=== PATIENT | female | born 1950 | race Caucasian/White ===

== ENCOUNTER → 2019-10-30 10:22 | Outpatient (CLI) | payer MEDICARE, SELFPAY ==
--- NOTE | 2019-10-30 10:36 | DI.CT.S_ITS ---
PROCEDURE: CT UE RT WO CON INDICATIONS: Primary osteoarthritis, right shoulder TECHNIQUE: Noncontrast 1-1.5 mm thick sections acquired from the acromioclavicular joint to the inferior scapula, with coronal and sagittal reformatting. COMPARISON: [facility] Outside Film, RG, SHOULDER MIN 2VW (RT), 12/19/2018, 16:46. FINDINGS: Image quality: Excellent. Bones: Severe degenerative osteoarthrosis is seen in the glenohumeral joint with full-thickness joint space narrowing, marginal osteophyte formation, subchondral cystic changes, and remodeling of the articular surfaces. There is mild posterior subluxation of the humeral head relative to the glenoid fossa. There is mild 5 degree retroversion of the glenoid relative to the midplane of the scapula when measured at the mid glenoid level. There is mild acromioclavicular joint osteoarthrosis. No acute fracture is seen. Soft tissues: Small glenohumeral joint effusion. A pacemaker is noted with battery pack in the right chest. There is mild dependent atelectasis in the lungs posteriorly a non-specific 3 mm nodule in the posterior aspect of the left upper lobe is nonspecific and most likely benign given its size. There is no significant atrophy of the rotator cuff musculature. The soft tissue structures including the tendons, ligaments, and articular cartilages are not well evaluated with CT. IMPRESSION: 1. Severe glenohumeral osteoarthrosis with full-thickness joint space narrowing and marginal osteophyte formation. There is mild glenoid retroversion measuring 5 mm relative to the midplane of the scapula at the mid glenoid level. There is mild posterior subluxation of the humeral head relative to the glenoid. No significant rotator cuff muscle atrophy. 2. Mild acromioclavicular joint osteoarthrosis. Dictated by: Cristóbal Martin M.D. on 10/30/2019 at 10:56 Approved by: Cristóbal Martin M.D. on 10/30/2019 at 11:07
== END ==
PROVIDERS: PCP Nurse Practitioner Family; Referring Provider Nurse Practitioner Family; Visit Provider Orthopaedic Surgery
DX: M19.011 Primary osteoarthritis, right shoulder (principal); Z95.0 Presence of cardiac pacemaker
CPT/HCPCS: 73200

== ENCOUNTER → 2020-02-07 15:12 | Outpatient (CLI) | payer MEDICARE, SELFPAY ==
[2020-02-07 16:58] LABS: COVID19 -Nasal RAPID Negative (Negative)
== END ==
PROVIDERS: PCP Nurse Practitioner Family; Visit Provider Physician Assistant
DX: Z11.59 Encounter for screening for other viral diseases (principal)
CPT/HCPCS: 87635

== ENCOUNTER 2020-02-09 07:15 | Inpatient (IN) | payer MEDICARE, SELFPAY ==
[2020-01-26 13:01] VITALS: BMI 19.5
[2020-02-09] VITALS (15 sets, daily range): BP systolic 87–121; BP diastolic 9–72; PULSE 60–99; RESP 11–23; TEMP 36.1–37.3; O2SAT 94–100; BMI 19.5
--- NOTE | 2020-02-09 06:00 | DI.RAD.S_ITS ---
PROCEDURE: XR SHOULDER RT 1V INDICATIONS: post op films TECHNIQUE: 1 view of the shoulder was acquired. COMPARISON: [facility], CT, CT UE RT WO CON, 10/30/2019, 10:29. FINDINGS: Bones: On this postoperative study, right shoulder arthroplasty hardware is seen. Soft tissues: Soft tissue postoperative changes are seen. The visualized lung demonstrates an unremarkable appearance. A pacer power pack can be seen. IMPRESSION: Normal postoperative examination. Dictated by: Jamir Barrett M.D. on 02/09/2020 at 10:32 Approved by: Jamir Barrett M.D. on 02/09/2020 at 10:34
[2020-02-09] MEDS: ACETAMINOPHEN 325 MG TABLET 975 MG PO ×3 (07:00→21:58)
[2020-02-09] MEDS: PREGABALIN 75 MG CAPSULE PO (07:01)
[2020-02-09] MEDS: CELECOXIB 200 MG CAPSULE PO (07:01)
[2020-02-09] MEDS: LACTATED RINGERS 1,000 ML 42 ML IV (07:19)
--- NOTE | 2020-02-09 07:35 | PM.PREOP ---
Pre-operative Note COVID-19 COVID-19 status: Negative Result date/Date tested (Pos, Neg/Pending): 02/07/20 Interval Note History & Physical reviewed/Exam performed by Physician: Yes Changes to H&P: No
[2020-02-09] MEDS: CEFAZOLIN 2 GM/100 ML FROZ.PIGGY IV (07:52)
--- NOTE | 2020-02-09 07:52 | SUR.PREOP ---
Block start time [0742] . Monitoring initiated and maintained throughout procedure. Oxygen and medications given per anesthesiologist instructions. Patient remained stable throughout procedure, no adverse reactions noted. Block end time [0750].
--- NOTE | 2020-02-09 07:54 | SUR.PREOP ---
To OR in stable condition.
[2020-02-09] MEDS: TRANEXAMIC ACID 1,000 MG VIAL 1000 MG INJ ×2 (08:14→09:23)
--- NOTE | 2020-02-09 08:27 | SUR.OPER ---
Beach chair with Dany/Johanny shoulder positioner. Lower body on padded OR bed. Head in foam padded head cradle, secured with straps. Non-operative arm secured <90 degrees abduction. Pillow under knees. Safety belt at thigh. Cloth tape over blanket over lower legs.
[2020-02-09] MEDS: BUPIVACAINE 0.5% W/ EPI (PF) 30 ML VIAL INJ (08:36)
[2020-02-09] MEDS: THROMBIN (RECOMBINANT) 5,000 UNIT VIAL 5000 UNIT TOP (08:37)
--- NOTE | 2020-02-09 09:54 | PM.OP.1 ---
Operative Date/Time/Diagnoses Date of procedure: 02/09/20 Time of procedure: 09:54 Pre-op diagnosis: Right shoulder osteoarthritis Post-op diagnosis: same Procedure & Clinicians Procedure: Right total shoulder replacement Same procedure as scheduled: Yes Indications: The patient has had progressively worsening right shoulder pain with radiographic changes consistent with arthritis. Non-operative management has failed and the patient has requested total shoulder replacement. The risks, benefits and alternatives to surgery were discussed with the patient prior to proceeding. Risks discussed included, but were not limited to, failure to relieve pain, stiffness, infection, nerve damage, deep venous thrombosis, pulmonary embolism, stroke, coma, heart attack, permanent paralysis and , as well as the potential need for eventual revision of the prosthetic. Surgeon: Shivam Sandy Loading Inspector: Kiya Figueroa Click Yes if Unassisted: No Anesthesia Type: General, Peripheral nerve block and Local Operative Notes Findings: Severe osteoarthritis of the shoulder with large inferior osteophyte on the humerus. There was cystic change in the glenoid. Closure Type: primary Specimen(s): none sent Prosthetic devices, grafts, tissues, transplants, or devices: Implants used in this procedure were manufactured by the [email or web address] and included an Altivate short stem total shoulder system with a 42 mm pegged E plus all polyethylene glenoid, a 12 mm short humeral stem with a neutral humeral neck and a 42 mm x 18 mm offset humeral head. Applied: drain(s) and implant(s) Estimated Blood Loss (mL): 200 Blood products transfused: none Procedure in detail: The patient was seen in the pre-operative area, where the patient identified the right shoulder as the operative site and this was marked with my initials. The patient received pre-operative antibiotics, underwent an interscalene block, and was taken to the operating room and placed on the operative table in the supine position. After satisfactory anesthesia, a full ?time out? was performed. The patient was repositioned in the ?beach chair? position using a dedicated positioner. All pressure points were well padded, and the knees were slightly bent to prevent tension on the sciatic nerves. The right arm was prepared from the fingers to the base of the neck with ChloraPrep in the usual fashion and draped through sterile drapes. An approximately 10 cm incision was created, starting at the clavicle above the coracoid process and extended towards the deltoid insertion. The deltopectoral interval was used to access the shoulder. The cephalic vein was inadvertently damaged during dissection and cauterized. A self retaining retractor was placed. The upper centimeter of the pectoralis major tendon was released. The ?three sisters? were identified and cauterized. The axillary nerve was palpated and protected throughout the case. The biceps was released from its groove and found to have been tenotomized during cauterization of the vessels. The subscapularis was released from the lesser tuberosity with a subscapularis peel and tagged for later repair. The shoulder was dislocated and a cutting guide was used for the proximal humeral osteotomy in 30 degrees of retroversion. A starter reamer was used followed by the cylindrical reamers. This continued in larger sizes in till cortical bite was achieved. Sequential broaching was then performed until a line to line fit with the reamer occurred. A proximal humeral protector was then placed. We then removed the self-retaining retractor and placed retractors to access the glenoid. The subscapularis was released with a ?360 degree release? with care being taken to protect the axillary nerve with the inferior portion of this procedure. The remnant of labrum and biceps stump were removed. The appropriate size reamer was chosen with the glenoid sizer, and the guide pin placed. The glenoid was appropriately reamed. The guide for the peripheral holes was used and the center hole enlarged. The trial glenoid was placed with good stability. We then cemented the final implant into place after irrigating the peg holes and drying them with thrombin-soaked Gelfoam. We returned our attention to the humerus, a trial humeral head was applied and a trial reduction performed. Stability was checked with 50% posterior translation with spontaneous reduction, 45-50 degrees external rotation at the side with the subscapularis held in the repaired position and 70? of internal rotation in the ?scarecrow position?. This was felt to be satisfactory and the appropriate implants were opened. Five holes were drilled along the humeral osteotomy and #2 TiCron sutures placed for eventual subscapularis repair. The humeral prosthetic was impacted into the humerus. The humeral head was applied when the stem was still slightly proud and impacted to both seat the head and fully seat the stem. The joint was relocated one final time. The joint was irrigated and the subscapularis repaired to the previously placed sutures using Alfonso-Bacilio sutures. The top of the subscapularis was closed to the leading edge of the supraspinatus with a figure of 8 #2 TiCron to close the rotator interval. A deep drain was placed and brought out supero-laterally. The deltopectoral interval was closed with interrupted 0 Vicryl. The subcutaneous layer was closed with 3-0 Vicryl, and the skin with a running 3-0 V-Lock suture and SteriStrips. An Aquacel Ag dressing was applied, the patient?s arm was placed in a sling, and the patient was taken to recovery having tolerated the procedure well. Complications: none Post-operative Condition: stable Disposition: PACU Plan for aftercare: The patient will be maintained on a standard total shoulder replacement protocol with passive range of motion limited to 90 degrees forward flexion, 0 degrees external rotation at the side, 0 degrees abduction and internal rotation to the body. The patient will receive aspirin and sequential compression devices for DVT prophylaxis. The patient will be discharged home when safe for the home environment, likely tomorrow.
--- NOTE | 2020-02-09 10:37 | SUR.PHASEI ---
report called to acute care SUSAN Martinez.
--- NOTE | 2020-02-09 10:57 | SUR.PHASEI ---
Update to SUSAN Martinez. Pt stable upon transfer of care.
[2020-02-09] MEDS: LACTATED RINGERS 1,000 ML 125 ML IV (11:11)
[2020-02-09] MEDS: LORazepam 0.5 MG TABLET PO (12:43)
[2020-02-09] MEDS: INFLUENZA HD VACCINE 0.7 ML SYRINGE IM (14:42)
--- NOTE | 2020-02-09 15:00 | PT.IIE ---
Addendum entered and electronically signed by Maria Luisa Daigle PT 02/09/20 17:06: Treatment was provided by VIVI David and supervised by Maria Luisa Daigle PT. I personally reviewed this note and agree with its contents. Original Note: Current Diagnoses Primary osteoarthritis, right shoulder (02/09/20) Surgery Performed Operation Date: 02/09/20 07:45 Actual Procedures p Total Shoulder Arthroplasty(Right) - Shivam Sandy MD Surgical History (Last Updated 01/27/20 @ 11:46 by Etelvina Hay RN) History of open heart surgery (~1997) Hx of craniotomy (11/1997) Hx of tonsillectomy Medical History (Last Updated 01/26/20 @ 13:26 by Etelvina Hay RN) Anxiety BCC (basal cell carcinoma of skin) Brain tumor (benign) Depression DJD (degenerative joint disease) of cervical spine Easy bruisability Hx of ectopic Hyperglycemia Osteoarthritis Pacemaker (1997) Pneumonia Seizure Physical Therapy Inpatient Evaluation/Re-Eval M1 PT/OT-IP Prior Functional Status Start: 02/09/20 11:39 Freq: NEEDED Status: Active Protocol: Document 02/09/20 14:58 DE (Rec: 02/09/20 15:49 DE [email or web address]) Medical Review Prior Functional Status Medical History Reviewed Yes Diet/Fluid Consistency Regular Communication WNL. No deficits noted. Able to make needs known. Mobility and Gait IND for all mobility and amb without AD or limitations at baseline. Activities of Daily Living and IADL's IND for all ADLs and IADLs including driving at baseline. Prior Functional Level (Other details) R hand dominant. Social History Household Members none Living Arrangements House Number of Floors (Floors) One Floor Number of Stairs To Enter/Railing? 0 GATO and no stairs inside her sisters house, where pt will stay for a few days after d/c. Home Environment Standard Height Toilet,Walk in Shower Home Equipment Shower Seat without Backrest, Grab Bars Near Toilet Employment Status Unknown Additional Social History Comment Pt lives alone in a 1-story house with 3 GATO and 1 step inside but she will stay at her sister's house for a few days after d/c. Pt has sister, [employer], older brother , nephews, and nieces in the area who can help if needed. M2 PT-IP Current Condition Start: 02/09/20 11:39 Freq: NEEDED Status: Active Protocol: Document 02/09/20 14:58 DE (Rec: 02/09/20 15:49 DE [email or web address]) Physical Therapy Current Condition Current Condition Evaluation Date 02/09/20 Treatment Diagnosis R total shoulder replacement standard; Reduced independence with ADLs Onset Date 02/09/20 Precautions Shoulder Precautions Sling,Internal Rotation to Body,No External Rotation,No Abduction,Forward Flexion to 90 degrees,Pendulums M3 PT-IP Subjective Start: 02/09/20 11:39 Freq: NEEDED Status: Active Protocol: Document 02/09/20 14:58 DE (Rec: 02/09/20 15:49 DE [email or web address]) Subjective Physical Therapy Visit Type Type Initial Evaluation Visit Start Time 14:05 Visit Stop Time 14:33 Total Visit Minutes 28 Notes SPT Pasquale led the session under direct supervision of PT Maria Luisa throughout the entire session. Number of HEAD OF CYTOGENETICS Visits 0 Physical Therapy Visit Comments Patient Comments Pt is agreeable to do PT. M4 PT-IP Mobility and Gait Start: 02/09/20 11:39 Freq: NEEDED Status: Active Protocol: Document 02/09/20 14:58 DE (Rec: 02/09/20 15:49 DE [email or web address]) PT-Bed Mobility Assessment Supine to Sit Supine to Sit Contact Guard Assistance,Head of Bed Elevated Sit to Supine Sit to Supine Contact Guard Assistance,Head of Bed Elevated Scooting Scooting to Edge of Bed Contact Guard Assistance PT-Transfer Assessment Sit to and From Stand Sit to and from Stand Contact Guard Assistance,Use of Upper Extremities Equipment Transfer Assistive Device Gait Belt,Front Wheeled Walker Orthotic/Prosthetic Devices or Brace: No Transfers Transfer Destination Bed Transfer Technique Stand Step Pivot Transfer Ability Level of Assist Contact Guard Assistance Comments Mobility Comments Pt was lying supine in bed with elevated HOB at ~30 deg as PT and SPT arrival. BP in supine was 93/59. Pt denied any dizziness or lightheadness . Pt completed supine to sit at R EOB with elevated HOB and CGA. Pt then performed sit to stand CGA without AD. Pt demonstrated some unsteadiness initially in standing but it was normal shortly after. Pt denied any dizziness or lightheadness. In standing, BP was 107/62. Pt amb ~5 ft to the sink with CGA. Pt stood in front of the sink unsupported for ~5 min while providing pt education on sling fitting. Pt then amb ~5 ft back to the bed and performed sit to supine with CGA and elevated HOB. Call light placed within reach. Gait Assessment Gait Gait Assistance Required: Contact Guard Assist Distance (Feet) 5 Able to Maintain Weight Bearing Status Yes During Gait Assistive Devices Assistive Device None,Gait Belt Orthotic/Prosthetic Devices or Brace: No Gait Deviations General Gait Pattern Within Normal Limits Comments Gait Comments See mobility comments. Stair Climbing Assessment Comments Stair Climbing Comments Not assessed. PT-Balance Assessment Sitting Balance and Reactions Static Sitting Balance Ability Normal Dynamic Sitting Balance Ability Normal Standing Balance and Reactions Static Standing Balance Ability Good Dynamic Standing Balance Ability Good M5 PT-IP Objective Assessments Start: 02/09/20 11:39 Freq: NEEDED Status: Active Protocol: Document 02/09/20 14:58 DE (Rec: 02/09/20 15:49 DE [email or web address]) Orientation Orientation/Cognition Level of Alertness Alert Orientation Name,Age,Birthday,Month,Date, Year,Day of Week,Place, Situation Language Function Ability No Deficits Noted Safety Awareness Understands Safety Issues Memory Description No Deficits Noted Gross Range of Motion Upper Extremity ROM Assessment Right Impaired Strength Upper Extremity Strength Assessment Right Impaired Coordination Assessment Gross Coordination Gross Coordination WNL Sensation Assessment Sensation Gross Sensation Right UE Impaired Light Touch Impaired Comments Sensation Comments RUE numbness from anasthesia. Muscle Tone Muscle Tone WNL Yes M6 PT-IP Treatment Start: 02/09/20 11:39 Freq: NEEDED Status: Active Protocol: Document 02/09/20 14:58 DE (Rec: 02/09/20 15:49 DE [email or web address]) Physical Therapy Treatment Exercises Exercises Shoulder Pendulums Education Education Provided Precautions,Post-Op Packet, Safety Other Treatments Other Treatment Performed Pt was educated on shoulder precautions, shoulder pendulum exercise, safety, and role of PT. M7 PT-IP Assessment and Plan Start: 02/09/20 11:39 Freq: NEEDED Status: Active Protocol: Document 02/09/20 14:58 DE (Rec: 02/09/20 15:49 DE [email or web address]) PT Summary Assessment and Plan Potential Rehabilitation Potential Good Status of Condition at Evaluation Evolving Summary Impairments Pain,ROM,Strength,Balance, Sensation,Bed Mobility, Transfers,Gait,Activity Tolerance Assessment Summary Blanca is a 69 yo female s/p standard R total shoulder replacement POD0. At baseline, pt was IND for all mobility, amb, and ADLs without any assistive device or limitations. On evaluation, pt requires CGA for all mobility and amb. Pt was slightly unsteady when she got OOB for the first time. Pt also had an asymptomatic low BP at rest but it improved with mobility. Pt is not safe yet to d/c home. Pt will need to improve activity tolerance and amb distance before d/c. PT anticipates pt will d/c home with assistance once medically stable. Pt will benefit from outpatient PT per surgeon protocol to improve her shoulder ROM and strength. Goals Bed Mobility Goal Independent Transfer Goal Independent Gait Goal Independent Gait Distance 200 Days to Meet Goals 3 Frequency of Treatment Frequency Of Treatment Twice a Day Treatment Plan Physical Therapy Treatment Plan Bed Mobility Training,Transfer Training,Gait Training, Therapeutic Exercise,Balance Retraining,Post Op Education, Discharge Planning,Hot or Cold Pack Other Recommendations and Next Treatment Monitor BP. Focus Recommendations To Nursing Amount of Assist Needed 1 Person Assist Discharge Recommendations PT Discharge Recommendations Home with Assistance Transportation Needs at Discharge Private Vehicle
--- NOTE | 2020-02-09 15:39 | PC.NURSE ---
@ 1100 pt to floor from PACU; VSS; RA; moves well in and out of bed to BSC; IV fluids infusing; SCDs active; Aquacell to R shoulder c/d/i; radial pulse strong and regular; c/m/s to RUE present
--- NOTE | 2020-02-09 19:49 | PC.NURSE ---
Hypotension: [employer] TENDER in to check VS, BP 87/49 & 83/52. Pt denies dizziness, c/o feeling tired. Has voided 600 ml urine, PO fluid intake encouraged at this time, she denies nausea & tolerating food. LR continues to infuse at 125 ml/hour. Still reports numbness to right shoulder, arm and hand, can now move hand slightly but not wiggle fingers. Arm/hand is warm with strong radial pulse, arm in supportive sling. I notified Dr Fraser of hypotension, no new orders given.
[2020-02-09] MEDS: DOCUSATE 100 MG CAPSULE PO (21:57)
[2020-02-09] MEDS: OXYCODONE IR 5 MG TABLET PO (21:58)
[2020-02-09] MEDS: lamoTRIgine 100 MG TABLET 150 MG PO (21:58)
[2020-02-09] MEDS: ASPIRIN EC 81 MG TABLET PO (21:58)
[2020-02-10 00:50] VITALS: BP 84/53; PULSE 68; RESP 16; TEMP 37.1; O2SAT 94
[2020-02-10 01:10] VITALS: BP 110/55
[2020-02-10] MEDS: OXYCODONE IR 5 MG TABLET PO (01:13)
[2020-02-10] MEDS: LACTATED RINGERS 1,000 ML 125 ML IV (01:15)
[2020-02-10] MEDS: HYDROMORPHONE 0.5 MG INJ 0.2 MG IV (02:23)
[2020-02-10] MEDS: OXYCODONE IR 10 MG TABLET PO ×4 (03:58→12:49)
[2020-02-10 04:45] VITALS: BP 112/52; PULSE 68; RESP 16; TEMP 36.7; O2SAT 95
[2020-02-10 06:25] LABS: Hematocrit 33.8 % (36-46); Hemoglobin 11.6 g/dL (12.0-16.0); Mean Corpuscular HGB Conc 34.4 % (30-36); Mean Corpuscular Hemoglobin 32.1 PG (26-34); Mean Corpuscular Volume 93.4 fL (80-100); Platelet Count 179 X10^3/uL (150-400); Red Blood Cell Count 3.61 X10^6/uL (4.0-5.2); Red Cell Distribution Width 12.5 % (11.6-14.8); White Blood Cell Count 7.1 X10^3/uL (4.5-11.0)
--- NOTE | 2020-02-10 07:57 | P.DS_ITS ---
History of Present Illness History of Present Illness Date Patient Seen: 02/10/20 Time Patient Seen: 07:57 Chief complaint: RT TSA Narrative: The history and physical are contained in the chart previously completed note. Please refer to that note for this information. Discharge Providers Provider Date of admission: 02/09/20 07:15 Discharge Date: 02/10/20 Primary care physician: SHELLY Velazquez Consults: 02/09/20 10:38 Consult to Discharge Planning Routine Comment: Consult to Physical Therapy Evaluate & Treat Comment: PROM 90 FF, 0 ER, 0 Abd, IR to body Physician Instructions: Evaluate and Treat Consult to Respiratory Therapy Evaluate & Treat Comment: Physician Instructions: Evaluate and treat Discharge provider: Shivam Sandy MD Summary Hospital Course Discharge Diagnosis: 1. Right shoulder osteoarthritis 2. Post hemorrhagic anemia Hospital Course: The patient was admitted the hospital and taken directly to the operating room on February 09, 2020 where she underwent a right total shoulder replacement without complications. On postoperative day 1 she was having mild pain control issues after the block had worn off. Pain was controlled on 10 mg of oxycodone. At the time of this dictation and is felt likely she will be ready for discharge later in the morning. Status at Discharge Cognitive/behavioral status at discharge: oriented Functional status at discharge: independent ambulation Overall status at discharge: patient is progressing back to baseline Time Spent with Patient Time spent: Less than 30 minutes Exam Vital Signs (past 8 hours): - 02/10/20 00:50 02/10/20 01:10 02/10/20 04:45 Temperature 98.7 F 98.0 F Pulse Rate 68 68 Respiratory Rate 16 16 Blood Pressure 84/53 L 110/55 L 112/52 L Pulse Oximetry 94 95 Oxygen Delivery Method Room Air Oxygen Flow Rate 0 Narrative Exam Narrative: Right shoulder wound is dressed with no drainage on the bandage. Light touch is intact in the radial, ulnar, median, muscular cutaneous and axillary nerve distributions. She can extend her thumb, abduct her thumb, abduct her fingers. She can fire her biceps and deltoid. Objective Labs Result Diagrams: 02/10/20 06:13 Labs: Laboratory Results - last 24 hr 02/10/20 06:13 WBC 7.1 RBC 3.61 L Hgb 11.6 L Hct 33.8 L MCV 93.4 MCH 32.1 MCHC 34.4 RDW 12.5 Plt Count 179 Discharge Assessment & Plan Assessment and Plan Assessment: Stable postoperative day 1 status post right total shoulder replacement with minor post hemorrhagic anemia and mild pain control issues. Plan of Treatment: Likely discharge later in the morning. Follow up my office in 10-14 days. D ischarge prescriptions for oxycodone are on the chart. The patient has been instructed to use aspirin for DVT prophylaxis. Discharge Plan Discharge Plan Patient Disposition: Home Discharge orders & Medications Prescriptions: New acetaminophen 325 mg Tablet 975 mg PO TID 30 Days Qty: 270 RF: 0 aspirin 81 mg Tablet,Delayed Release (Dr/Ec) 81 mg PO BID 42 Days Qty: 84 RF: 0 oxycodone 5 mg Tablet 5 mg PO Q4H PRN (Reason: Pain, Moderate (4-6)) Qty: 40 RF: 0 Continued lamotrigine 150 mg Tablet 150 mg PO BID RF: 0 lorazepam 0.5 mg Tablet 0.5 mg PO DAILY PRN (Reason: Anxiety, seizure) RF: 0 ibuprofen [Advil] 200 mg Tablet 400 mg PO BID PRN (Reason: Pain) RF: 0 Follow up/Referrals: Alexandra Gu ARNP [Primary Care Provider] - Shivam Sandy MD [Physician] - 2 Weeks Discharge Health Status Multidrug resistant organism: No MDRO Diet/Activity/Treatments Diet: Diet as Tolerated and Regular Activity: You may use your right hand in front of your body below shoulder level. You may do pendulum exercises. Leave the arm in the sling if you are not doing pendulums, showering or using her arm as noted above. Lift no more than 1 lb with the right arm. Cold/Heat Therapy: You may apply ice for 15 minutes of every hour to the right shoulder as needed for pain control. Skin/Wound/Dressing Care Report to your healthcare provider any signs of infection, such as:: chills, fever, night sweats, increased pain, unusual drainage and unusual redness Dressing: Leave the dressing in place until follow-up. You may shower with the dressing in place. If the center strip of the dressing becomes saturated with either water or blood, please call my office to have it evaluated. Visit Report/Discharge Packet Instructions: DI for Prescription Opioid Use, DI for Shoulder Replacement Stand Alone Forms: Surgery Discharge Discharge Data Primary Care Provider: Alexandra Gu
[2020-02-10 08:00] VITALS: BP 126/73; PULSE 62; RESP 16; TEMP 36.7; O2SAT 98
[2020-02-10] MEDS: ACETAMINOPHEN 325 MG TABLET 975 MG PO (09:38)
[2020-02-10] MEDS: lamoTRIgine 100 MG TABLET 150 MG PO (09:39)
[2020-02-10] MEDS: DOCUSATE 100 MG CAPSULE PO (09:39)
[2020-02-10] MEDS: ASPIRIN EC 81 MG TABLET PO (09:39)
--- NOTE | 2020-02-10 10:25 | CM.DANOTE ---
DCP/continued: Reviewed chart. Patient is a 69yr old female admitted to [facility] for elective right TSA performed on 02-09-[address] Sandy. PCP listed is Alexandra Gu. Primary payor 1)C[facility]. Met with patient and sister explained role. Patient reports that she will be discharging home today. Patient has supportive sister/Letty at bedside whom will be helping. Patient requesting priority boarding pass for Sunday sailing today at 2:10pm. RN updated. P: Home today with supportive family. DOMINGA Escobar Discharge Planning/Care Management Advanced directive, confirm from FAMILY Start: 02/09/20 12:49 Freq: Q24H Status: Active Protocol: Document 02/09/20 12:49 JDG (Rec: 02/09/20 14:15 JDG [id number]) Advance Directive, confirm on record Time 13:00 Person contacted Sister Copy received No CM Discharge Assessment Start: 02/10/20 09:22 Freq: Status: Active Protocol: Document 02/10/20 09:23 KJS (Rec: 02/10/20 09:31 KJS [id number]) Discharge Planning Assessment Assigned Strike Planning Applications DOMINGA Escobar Contact Information Letty Alonzo (sister) # Advance Directives? Yes Advance Directives on File No History Provided By Patient,Medical Record Prior Living Arrangements House Household Members family,none Comment Going to have support from sister/Letty upon d/c. Independent with ADL's Yes Is patient alert and oriented? Yes Caregiver for Another No Barriers to Discharge No Discharge Plan Home Transportation Arrangement Sister Additional Comment Priority boarding pass for return to Sunday. Whiteboard Updated in Patient Room with Yes name and ext. # of Strike Planning Applications Pre-Anesthesia Assessment Start: 01/26/20 13:01 Freq: Status: Active Protocol: Document 01/26/20 13:01 CAB (Rec: 01/26/20 13:49 CAB [id number]) Pre-Anesthesia Assessment Patient Information Reviewed Via Phone Assessment Assessment Completed With Patient Comment Labs/EKG done per pt, not available, COVID screen @ [place] Primary Care Provider Alexandra Gu Seen Specialist in Last 12 Months Yes Specialist Seen Glue Spreader,Orthopedist,Other Comment Neurology Primary Language Central African Acidizer Required No Height 160.02 cm Weight 49.895 kg Body Mass Index (BMI) 19.5 Hearing Ability Normal Visual Assist Magnifying Glass Dentition Type Teeth, Natural Present Barriers to Learning None Hx Anesthesia Reactions Yes: PONV Hx Family Anesthesia Reaction No Hx Malignant Hyperthermia No Hx Blood Transfusions Yes: Age 12 Hx Blood Transfusion Reaction No Anesthesia Review Requested Yes: PAC Courtesy re: Medical history alcohol intake current alcohol intake frequency a few times a week Smoking Status Never smoker Substance Use Type does not use Pain Present Pain Reported Musculoskeletal Symptoms Abnormal Gait,Difficulty Walking,Joint Pain,Limited Range of Motion,Muscle Cramps, Muscle Spasms,Muscle Weakness, Numbness,Radiating Pain into Limb,Tingling History of Falling (Recent or History of No ) Patient is completely paralyzed or No completely immobile Mental Status Oriented to own ability Is patient on oxygen? No Does patient have JOSEPH/SOB No Hx Sleep Apnea No Currently Taking a Beta Jorge No Can You Climb a Flight of Stairs Without Yes: Hikes 3-4 miles daily SOB Hx Chest Pain Yes: Intermittently over last 10 years Hx SOB No Hx Syncope or Dizziness Yes: Syncope r/t seizures Anti-Coagulant Therapy No Has a Glue Spreader Yes: Dr. Osborne Hx Pacemaker/ICD Yes: Pacemaker on right side Pacemaker Rep Required? Yes: Pacemaker form scanned and on surgery folder for dos Comment Cardiac records scanned Additional comment Dr. Solomon requests Pacer rep present dos, Javi/Chong notified 01/28 Diet Type At Home Regular dysphagia Yes: Always w/solids Gastrointestinal Symptoms Hemorrhoids Bladder Pattern Frequency,Incontinent, Stress Urinary Catheter Present No Hx Urinary Self Catheterization No Diabetes No Patient No Lactating No Hx Drug Resistant Organism No Presence of External or Internal Medical Yes: Pacemaker, sternal wires, Devices Have you had any close contact with No someone diagnosed with COVID-19? Marital Status Lives With none Prior Living Arrangements House Number of Floors (Floors) One Floor Support System Sibling(s) Does the Patient Have Assistance After Yes: Will stay w/sister for Surgery assistance at [place] Patient Discharge Plan Description Return Home Comment Lives on [facility] Additional comment Pt not advised on length of stay per surgeon Feels Safe in Current Environment Yes Been Physically Hurt or Threatened By a No Person in Current Environment Do you have thoughts of harming yourself None or others? Are you currently considering suicide? No Do you have a plan to hurt yourself or No Plan others? Do You Have Any Spiritual Beliefs That No May Affect Your HC Choices? Do You Have Any Cultural Practices That No May Affect Your HC Choices? Who Can We Speak to About Patient's Care Family, friends Identifying Code for Release of Patient Declines to issue Information Health Care Proxy/Next of Kin Letty (sister) Health Care Proxy or [phone] Emergency Contact Name Letty (sister) Emergency Contact or [phone] Advance Directives? Yes Advance Directives on File No Requested Patient Bring Advanced Yes Directives DOS Power of Studio Sales Associate No PAC Instructions Durable medical equipment, Medications to take/avoid, Nasal antibiotic,No ETOH/ petroleum product on skin DOS, NPO,Post-op transportation,Pre -surgical wash,Sensory aids, Sturdy shoes/comfortable clothes,Do not bring valuables and remove jewelry
[2020-02-10 10:35] VITALS: BP 120/74; PULSE 75
--- NOTE | 2020-02-10 10:59 | PT.IPTN ---
Current Diagnoses Primary osteoarthritis, right shoulder (02/09/20) Surgery Performed Operation Date: 02/09/20 07:45 Actual Procedures p Total Shoulder Arthroplasty(Right) - Shivam Sandy MD Physical Therapy Treatment Note M2 PT-IP Current Condition Start: 02/09/20 11:39 Freq: NEEDED Status: Active Protocol: Document 02/09/20 14:58 DE (Rec: 02/09/20 15:49 DE [email or web address]) Physical Therapy Current Condition Current Condition Evaluation Date 02/09/20 Treatment Diagnosis R total shoulder replacement standard; Reduced independence with ADLs Onset Date 02/09/20 Precautions Shoulder Precautions Sling,Internal Rotation to Body,No External Rotation,No Abduction,Forward Flexion to 90 degrees,Pendulums M3 PT-IP Subjective Start: 02/09/20 11:39 Freq: NEEDED Status: Active Protocol: Document 02/10/20 10:27 (Rec: 02/10/20 11:30 [email or web address]) Subjective Physical Therapy Visit Type Type Treatment Note Visit Start Time 10:27 Visit Stop Time 10:59 Total Visit Minutes 32 Notes ELODIA Sierra led tx under direct supervision of Emani GARCIA for the entire session. Number of COACH WIRER Visits 1 Physical Therapy Visit Comments Patient Comments Pt is agreeable to do PT. Therapy Pain Assessment Pain When Pain Assessed At Rest Pain Present Pain Present Pain Reported Location Head Intensity 2 Scale Used Numeric (0 - 10) M4 PT-IP Mobility and Gait Start: 02/09/20 11:39 Freq: NEEDED Status: Active Protocol: Document 02/10/20 10:27 (Rec: 02/10/20 11:30 [email or web address]) PT-Bed Mobility Assessment Rolling Type of Rolling Roll to Right Level of Assist Standby Assistance Supine to Sit Supine to Sit Standby Assistance,Head of Bed Elevated Scooting Scooting to Edge of Bed Standby Assistance PT-Transfer Assessment Sit to and From Stand Sit to and from Stand Standby Assistance Equipment Transfer Assistive Device Gait Belt Transfers Transfer Destination Chair Transfer Technique Stand Step Pivot Transfer Ability Level of Assist Standby Assistance Comments Mobility Comments Pt in bed upon arrival and sister present during tx. Supine BP 104/56. SBA supine to sit. Scooting to EOB SBA. Sitting BP 126/73. Donned R sock independently, needed assistance w/ L. Sit to stand SBA w/ no AD. Standing BP 120/ 74. Pt amb to bathroom and pericare SBA. Pt amb in hallway ~250', gait WNL. Pt returned to room sat in chair SBA. Reviewed precautions, practiced pendulums and donning/doffing sling w/ some assistance from her sister. Gait Assessment Gait Gait Assistance Required: Standby Assistance Distance (Feet) 250 Able to Maintain Weight Bearing Status Yes During Gait Assistive Devices Assistive Device None,Gait Belt Orthotic/Prosthetic Devices or Brace: No Gait Deviations General Gait Pattern Within Normal Limits Comments Gait Comments See mobility comments. Stair Climbing Assessment Comments Stair Climbing Comments Not assessed. PT-Balance Assessment Sitting Balance and Reactions Static Sitting Balance Ability Normal Dynamic Sitting Balance Ability Normal Standing Balance and Reactions Static Standing Balance Ability Good Dynamic Standing Balance Ability Good M5 PT-IP Objective Assessments Start: 02/09/20 11:39 Freq: NEEDED Status: Active Protocol: Document 02/09/20 14:58 DE (Rec: 02/09/20 15:49 DE [email or web address]) Orientation Orientation/Cognition Level of Alertness Alert Orientation Name,Age,Birthday,Month,Date, Year,Day of Week,Place, Situation Language Function Ability No Deficits Noted Safety Awareness Understands Safety Issues Memory Description No Deficits Noted Gross Range of Motion Upper Extremity ROM Assessment Right Impaired Strength Upper Extremity Strength Assessment Right Impaired Coordination Assessment Gross Coordination Gross Coordination WNL Sensation Assessment Sensation Gross Sensation Right UE Impaired Light Touch Impaired Comments Sensation Comments RUE numbness from anasthesia. Muscle Tone Muscle Tone WNL Yes M6 PT-IP Treatment Start: 02/09/20 11:39 Freq: NEEDED Status: Active Protocol: Document 02/09/20 14:58 DE (Rec: 02/09/20 15:49 DE [email or web address]) Physical Therapy Treatment Exercises Exercises Shoulder Pendulums Education Education Provided Precautions,Post-Op Packet, Safety Other Treatments Other Treatment Performed Pt was educated on shoulder precautions, shoulder pendulum exercise, safety, and role of PT. M7 PT-IP Assessment and Plan Start: 02/09/20 11:39 Freq: NEEDED Status: Active Protocol: Document 02/10/20 10:27 (Rec: 02/10/20 11:30 [email or web address]) PT Summary Assessment and Plan Potential Rehabilitation Potential Good Status of Condition at Evaluation Evolving Summary Impairments Pain,ROM,Strength,Balance, Sensation,Bed Mobility, Transfers,Gait,Activity Tolerance Assessment Summary supine BP 104/56, sitting 126 /73, standing 120/74. Pt reported no dizziness. Pt is SBA for all mobility, and amb. Pts sister will be present to assist at home when pt needs. Pt will benefit from outpatient PT to improve her shoulder ROM and strength. Goals Bed Mobility Goal Independent Transfer Goal Independent Gait Goal Independent Gait Distance 200 Days to Meet Goals 3 Frequency of Treatment Frequency Of Treatment Twice a Day Treatment Plan Physical Therapy Treatment Plan Bed Mobility Training,Transfer Training,Gait Training, Therapeutic Exercise,Balance Retraining,Post Op Education, Discharge Planning,Hot or Cold Pack Other Recommendations and Next Treatment Monitor BP, review donning/ Focus doffing sling and pendulums. Recommendations To Nursing Amount of Assist Needed 1 Person Assist Discharge Recommendations PT Discharge Recommendations Home with Assistance Transportation Needs at Discharge Private Vehicle
--- NOTE | 2020-02-10 13:26 | PC.NURSE ---
DISCHARGE: PATIENT CLEARED FOR DC HOME BY PHYSICAL THERAPY. HV DC'D INTACT, 2X2 FOLDED IN 1/4THS AND TEGADERM OVER SITE. AQUACEL CDI. CMS INTACT. PRIORITY LOAD PASS PROVIDED TO PATIENT. PATIENT STATED DR. CHI HAD BEEN GOING TO INCREASE OXYCODONE TO 10MG Q 4HR PRN. SETH NAVA WROTE NEW SCRIPT, PRIOR SCRIPT FOR 5MG SHREDDED W/ CHARGE NURSE. PATIENT'S FRIEND PRESENT FOR ALL DC HOME INSTRUCTIONS WELL. THEY CONFIRM UNDERSTANDING. PATIENT LEFT BY WC WITH STEAM PRESSURE CHAMBER OPERATOR ESCORT TO VEHICLE WITHOUT S/SX'S OF DISTRESS AND ADEQUATE PAIN CONTROL.
== END 2020-02-10 13:20 | disposition home or self-care (01) | DRG 483 ==
PROVIDERS: Admitting Provider Orthopaedic Surgery; PCP Nurse Practitioner Family; Referring Provider Nurse Practitioner Family; Visit Provider Orthopaedic Surgery
PROC: 0RQJ0ZZ Repair Right Shoulder Joint, Open Approach (ICD-10-PCS; CPT 23472; principal; 2020-02-09 07:45)
DX: M19.011 Primary osteoarthritis, right shoulder (principal); I49.5 Sick sinus syndrome; M25.711 Osteophyte, right shoulder; G40.909 Epilepsy, unspecified, not intractable, without status epilepticus; Z95.0 Presence of cardiac pacemaker; Z11.59 Encounter for screening for other viral diseases
CPT/HCPCS: 36415; 64450; 73020; 85027; 87635; 90471; 90662; 94762; 97116; 97161; 97530; C1776; J0690; J1100; J1170; J2250; J2405; J2704; J3010

== ENCOUNTER 2022-11-30 06:15 | Day surgery (SDC) | payer MEDICARE, SELFPAY ==
[2020-02-09 12:45] VITALS: BMI 19.5
[2022-11-13 08:50] VITALS: BMI 19.8
[2022-11-30] VITALS (11 sets, daily range): BP systolic 81–146; BP diastolic 49–70; PULSE 60–86; RESP 13–18; TEMP 36.2–37; O2SAT 94–100; BMI 19.8
--- NOTE | 2022-11-30 06:00 | DI.RAD.S_ITS ---
PROCEDURE: XR HIP W PEL IF DONE RT 2V INDICATIONS: INNER OP HIP, ANTERIOR TECHNIQUE: 4 intraoperative fluoroscopic images obtained. COMPARISON: None. FINDINGS: Intraoperative fluoroscopic images from right hip arthroplasty. IMPRESSION: Intraprocedural fluoroscopy was provided for guidance and anatomical localization. Please see the procedure report for further details. Dictated by: Cristóbal Biswas M.D. on 11/30/2022 at 18:01 Approved by: Cristóbal Biswas M.D. on 11/30/2022 at 18:01
[2022-11-30] MEDS: VANCOMYCIN 1,000 MG/200 ML PIGGYBACK 200 MG IV (06:30)
[2022-11-30] MEDS: CELECOXIB 200 MG CAPSULE PO (06:31)
[2022-11-30] MEDS: ACETAMINOPHEN 325 MG TABLET 975 MG PO (06:31)
[2022-11-30] MEDS: LACTATED RINGERS 1,000 ML 42 ML IV (07:13)
--- NOTE | 2022-11-30 07:47 | PM.PREOP ---
Pre-operative Note Interval Note History & Physical reviewed/Exam performed by Physician: Yes Changes to H&P: No
--- NOTE | 2022-11-30 07:48 | P.OP_ITS ---
Operative Date/Time/Diagnoses Date of procedure: 11/30/22 Time of procedure: 08:00 Pre-op diagnosis: right hip OA Post-op diagnosis: same Procedure & Clinicians Procedure: Right total hip arthroplasty anterior approach Same procedure as scheduled: Yes Indications: The patient has had progressively worsening right hip pain with radiographic c hanges consistent with arthritis. Non-operative management has failed and the patient has requested total hip replacement. The risks, benefits and alternatives to surgery were discussed with the patient prior to proceeding. Risks discussed included, but were not limited to, failure to relieve pain, leg length discrepancy, dislocation, stiffness, infection, nerve damage, deep venous thrombosis, pulmonary embolism, stroke, coma, heart attack, permanent paralysis and , as well as the potential need for eventual revision of the prosthetic. Surgeon: Rylie Bullock Pension Fund Manager: Benedicto Banda Anesthesia Type: General and Spinal Operative Notes Findings: Severe right hip OA, soft bone, adequate stability Closure Type: primary Specimen(s): none sent Prosthetic devices, grafts, tissues, transplants, or devices: Bullock and nephew R3 size 48, neutral poly liner,one 6.5 mm screw, polar stem size 0 with collar, 32 by -3 cobalt chrome femoral head Estimated Blood Loss (mL): 200 Blood products transfused: none Procedure in detail: The patient was brought to the operating room. Patient was carefully positioned in the supine position. Time-out was performed and antibiotics were given. Anesthesia was induced. She was positioned in the on the table in order to allow hyperextension of the hip. The right lower extremity was prepped and draped in a standard sterile fashion. An anterior right hip incision was made 1 fingerbreadth lateral to the anterior superior iliac spine and extended distally towards the greater trochanter. Dissection was carried out through skin and subcutaneous tissues. Superficial hemostasis was achieved. The fascia over the tensor fascia alba was defined and incised with a knife. Two Allis clamps were used to grasp the fascia. Tensor fascia alba was retracted laterally. A gelpi retractor was placed. Dissection was carried out down along the neck. The circumflex vessels were carefully identified and cauterized with the Aqua Mantis. A PA was used throughout the procedure and was essential for retraction safe implantation of the components and establishing adequate intraoperative hemostasis. There was good visualization of the femoral neck. A Cobra was placed superior to the neck and the gluteus fibers were carefully stripped from that superior aspect of the capsule. A 2nd retractor was placed along the inferior aspect of the neck. The rectus insertion along the capsule was partially released. A 3rd retractor that was then gently placed over the rim of the acetabulum under the rectus. Capsule was carefully incised and released from the intertrochanteric line circumferentially superior to the mid sagittal line and inferiorly to the mid sagittal line until the lesser trochanter was palpable. A tag stitch was placed both in the superior and inferior limb of the capsular insertion. Along the acetabulum capsule was also released up to the mid sagittal 12:00 position. A portion of the labrum was resected. A saw was used to perform an osteotomy at the level of the intertrochanteric line and the junction of the superior femoral neck leaving approximately 1 finger breath of residual inferior neck above the lesser trochanter. A 2nd cut was made along the femoral neck at the base of the head and a napkin ring of neck was removed. Corkscrew was placed in the femoral head and the head was removed without difficulty. Retractors were then repositioned around the acetabulum. Residual labrum was resected and additional osteophytes were removed. A reamer that was 4 mm below the templated size was placed by hand in the acetabulum and it was reamed to centralize the acetabulum. It was then reamed up to 2 under the templated size and fluoroscopy was brought in to confirm the position of the reaming and depth of reaming. I reamed 1 under the anticipated size and touched the rim with line to line reaming. A trial cup was placed and noted that it was appropriately sized and fluoroscopy confirmed position and depth. The component was open and inserted without difficulty fluoroscopic imaging was used to confirm that the cup had been adequately seated and was well positioned. It was further stabilized with a single screw. Neutral poly liner was placed. The cup was tested and noted to be stable. Attention was then directed to the femur. The femur was gently hyperextended additional capsular release was performed as needed in order to allow adequate visualization of the proximal femur with elevation of the femur. Patient was placed in a hyperextended slightly adducted position with maximum external rotation. Box osteotome was used to check for any residual neck as well as sclerotic bone along the trochanter. Duncan pepper was placed in the femur. Additional broaching was performed. Canal finder was used to determine the alignment of the canal and position. Size 1 broach was placed. The canal was then appropriately broached up to the templated size as long as there was adequate stability of the broach and serial advancement of the broach without excessive impingement. Specific attention was directed at avoiding varus attempting to direct the distal aspect of the broach more anteriorly and avoiding excessive anteversion. Trial reduction showed acceptable range of motion, good stability, no posterior impingement, nondenominational of leg length and appropriate lateral shuck. I also hyperflexed the hip and checked that there was no impingement anteriorly and there was good stability with flexion, adduction and internal rotation. Marcaine and Exparel were injected. The stem was placed without difficulty. Repeat trial reduction and x-ray showed acceptable overall position, length, and no evidence of the femoral fracture. Final head was placed. Wound was meticulously irrigated with normal saline. The hip was reduced and additional Exparel and Marcaine were injected. The capsule was closed with interrupted nonabsorbable sutures. The fascia of the tensor was closed with interrupted and running Vicryl. No drain was placed. Any tensor fascia alba muscle that appeared to be contused or injured which was a minimal amount was carefully resected. Capsule around the tensor was injected with Exparel and Marcaine. The skin was closed with barbed stitches for the subcutaneous tissue and skin. We also used surgical glue. The wound was dressed sterilely. Brief Betadine soak was also used and was meticulously irrigated with normal saline. Patient was transferred to recovery room in satisfactory condition. Complications: none Post-operative Condition: stable Disposition: Acute Care Plan for aftercare: The patient will be maintained on a standard total hip replacement protocol with weight bearing as tolerated and anterior hip precautions. The patient will receive Aspirin and sequential compression devices for DVT prophylaxis. The patient will be discharged home when safe for the home environment.
[2022-11-30] MEDS: CEFAZOLIN 2 GM/100 ML PREMIX 100 ML IV ×3 (08:15→17:58)
--- NOTE | 2022-11-30 08:32 | SUR.OPER ---
Patient supine on padded Reyno table, one arm on padded arm board at <90, other arm padded and secured with tape across patient's chest, both legs secured in padded traction boots and positioned per surgeon, padded post at patient's groin, pressure points checked and padded.
[2022-11-30] MEDS: BUPIVACAINE 0.25% (PF) 60 ML, EPINEPHrine 0.3 MG INJ (08:39)
[2022-11-30] MEDS: BUPIVACAINE LIPOSOME 266 MG/20 ML VIAL INJ (08:39)
[2022-11-30] MEDS: TRANEXAMIC ACID 1,000 MG VIAL 2000 MG INJ ×2 (09:53→09:54)
--- NOTE | 2022-11-30 10:30 | DI.RAD.S_ITS ---
PROCEDURE: XR HIP W PEL IF DONE RT 2V INDICATIONS: ANTERIOR RIGHT HIP POST OP TECHNIQUE: 2 view(s) of the hip acquired. COMPARISON: [facility], PEDRO PABLO, XR HIP W PEL IF DONE RT 2V, 11/30/2022, 9:09. FINDINGS: Bones: Patient is status post right hip arthroplasty, with hardware components in expected positions. The hip joint appears congruent. The visualized bony structures appear intact. Soft tissues: Overlying postoperative changes are noted. No suspicious soft tissue densities. IMPRESSION: Expected postoperative appearance of a right total hip arthroplasty Dictated by: Malachi Sharma M.D. on 11/30/2022 at 10:36 Approved by: Malachi Sharma M.D. on 11/30/2022 at 10:37
[2022-11-30] MEDS: LORazepam 0.5 MG TABLET PO ×2 (10:48→23:14)
[2022-11-30] MEDS: LACTATED RINGERS 1,000 ML 100 ML IV ×2 (10:49→15:25)
[2022-11-30] MEDS: ACETAMINOPHEN 325 MG TABLET 650 MG PO ×3 (10:59→23:12)
[2022-11-30] MEDS: OXYCODONE IR 5 MG TABLET PO ×2 (10:59→20:59)
[2022-11-30] MEDS: IBUPROFEN 400 MG TABLET PO ×3 (11:01→23:12)
[2022-11-30] MEDS: ONDANSETRON 4 MG ODT PO (11:01)
[2022-11-30] MEDS: KETOROLAC 30 MG/ML VIAL 15 MG IV (11:35)
[2022-11-30] MEDS: HYDROMORPHONE 2 MG TABLET PO ×2 (11:36→15:24)
--- NOTE | 2022-11-30 13:20 | OT.IP.EVAL ---
Addendum entered and electronically signed by Jenifer Fierro OT 11/30/22 15:56: e-sign sent to Dr. Bullock Original Note: Current Diagnoses Unilateral primary osteoarthritis, right hip (11/30/22) Surgery Performed Operation Date: 11/30/22 07:45 Actual Procedures p Total Hip Arthroplasty/Anterior Approach(Right) - Rylie Bullock MD Past Medical History (Last Updated 01/26/20 @ 13:26 by Etelvina Hay, RN) Anxiety BCC (basal cell carcinoma of skin) Brain tumor (benign) Depression DJD (degenerative joint disease) of cervical spine Easy bruisability Hx of ectopic Hyperglycemia Osteoarthritis Pacemaker (1997) Pneumonia Seizure Surgical History (Last Updated 01/27/20 @ 11:46 by Etelvina Hay RN) History of open heart surgery (~1997) Hx of craniotomy (11/1997) Hx of tonsillectomy Occupational Therapy Inpatient Evaluation/Re-Eval M1 PT/OT-IP Prior Functional Status Start: 11/30/22 15:07 Freq: NEEDED Status: Active Protocol: Document 11/30/22 13:20 [facility] (Rec: 11/30/22 15:50 [facility] [id number]) Medical Review Prior Functional Status Communication Independent Mobility and Gait Pt having to use a SPC just prior to having hip surgery. Activities of Daily Living and IADL's Pt having pain but able to due ADL and IADL needs. Social History Household Members none Living Arrangements House Number of Floors (Floors) One Floor Number of Stairs To Enter/Railing? 3 steps, 1 step to the living room. Information in for pt's house. Pt has a stool with rails on both sides in order to help step up and get into her high bed. Pt states can go to her sister 's house if needed which has no steps, standard toilet with grab bar, walk in shower, shower stool. Home Environment Standard Height Toilet,Walk in Shower Home Equipment Front Wheel Walker,Straight Cane,Shower Seat without Backrest,Hand Held Shower, Robot Programmer,Grab Bars Near Toilet Additional Social History Comment Pt wanting to go home, but has the option to go to her sister's house initially if needed. M2 OT-IP Current Condition Start: 11/30/22 15:07 Freq: Status: Active Protocol: Document 11/30/22 13:20 [facility] (Rec: 11/30/22 15:50 [facility] [id number]) Occupational Therapy Current Condition Current Condition Evaluation Date 11/30/22 Treatment Diagnosis S/P R MEGAN anterior approach Diagnosis Onset Date 11/30/22 Post Operative Precautions Anterior Hip Precautions No Hip Extension,No Hip External Rotation M3 OT- IP Subjective and Pain Start: 11/30/22 15:07 Freq: Status: Active Protocol: Document 11/30/22 13:20 [facility] (Rec: 11/30/22 15:50 [facility] [id number]) OT- Subjective Occupational Therapy Visit Type Type Initial Evaluation Visit Start Time 13:20 Visit Stop Time 14:03 Total Visit Minutes 43 Occupational Therapy Visit Comments Patient Comments Pt agreed to get up and use the BSC. Patient/Caregiver Goals To go home. OT Pain Assessment Pain When Pain Assessed At Rest Pain Present Pain Present Pain Reported Location R hip Intensity 6 Scale Used Numeric (0 - 10) M4 OT- IP ADL's Start: 11/30/22 15:07 Freq: Status: Active Protocol: Document 11/30/22 13:20 [facility] (Rec: 11/30/22 15:50 [facility] [id number]) OT VRW-Hxlp-Ybovath Comments OT Self-Feeding Comments Not at meal time. OT ADL-Grooming Comments OT Grooming Comments Not performed. OT ADL-Oral Care Comments Oral Care Comments Not performed. OT ADL-Dressing General Eval Lower Body Dressing Ability Minimal Assistance Comments OT Dressing Comments Assist to help with her own while sitting donw to the toilet. OT ADL-Toileting General Evaluation Toileting Ability Minimal Assistance Areas Needing Assistance Manage Clothing Comments OT Toileting Comments Pt needing assist to help lower down to the toilet and come to stand from the BSC. OT ADL-Bathing Comments OT Bathing Comments Not performed. M5 OT- IP IADL's Start: 11/30/22 15:07 Freq: Status: Active Protocol: Document 11/30/22 13:20 [facility] (Rec: 11/30/22 15:50 [facility] [id number]) OT-Instrumental Activities of Daily Living Deficits IADL Deficits Identified Deficits Home Safety Awareness Home Safety Comments Pt insistent that she is better off at home, but realizes that she may need to go to her sister's house initially. Pt's sister lives 2 miles away. M6 OT- IP Functional Cognition Start: 11/30/22 15:07 Freq: Status: Active Protocol: Document 11/30/22 13:20 [facility] (Rec: 11/30/22 15:50 [facility] [id number]) Cognitive Factors Limiting Selfcare Function Cognitive Ability Level of Alertness Alert Patient Orientation Name,Place,Situation Attention Span Ability Capable of Focused Attention, Capable of Sustained Attention Ability to Follow Commands Able to Follow One Step Commands Safety Awareness Decreased Ability to Apply Precautions,Underestimates Need for Assistance Cognitive Comments Cognitive Assessment Comments Pt needing reminders for her hip precautions for ADl and mobility needs. OT- Vision and Hearing OT- Hearing Assessment OT- Hearing Assessment WFL OT- Vision Assessment Visual Acuity Glasses For Reading M7 OT- IP Mobility and Balance Start: 11/30/22 15:07 Freq: Status: Active Protocol: Document 11/30/22 13:20 [facility] (Rec: 11/30/22 15:50 [facility] [id number]) OT- Bed Mobility Assessment Supine to Sit Supine to Sit Assist Moderate Assistance Sit to Supine Sit to Supine Assist Standby Assistance,Minimal Assistance Scooting Scooting to Edge of Bed Contact Guard Assistance OT-Transfer Assessment Sit to and From Stand Sit to and from Stand Contact Guard Assistance Transfers Transfer Ability Minimal Assistance Technique Transfer Destination Bed,Bedside Commode Transfer Technique Stand Step Pivot Devices Transfer Assistive Devices Gait Belt,Front Wheeled Walker Comments Mobility Comments Pt needing assist to move her RLE , heavy use of bed rail to get to the edge of the bed. Pt able to use the gait belt to help get her RLE back to bed. Pt has a leg research animal attendant to use at home. Pt's FWW wheels are turns inward due to her small doorways at home per pt. OT- Balance Assessment Sitting Balance and Reactions Static Sitting Balance Ability Good Dynamic Sitting Balance Ability Fair Standing Balance and Reactions Static Standing Balance Ability Fair Dynamic Standing Balance Ability Fair M8 OT- IP Objective Assessments Start: 11/30/22 15:07 Freq: Status: Active Protocol: Document 11/30/22 13:20 [facility] (Rec: 11/30/22 15:50 [facility] [id number]) OT Gross Range of Motion Upper Extremity Range of Motion Assessment Within Functional Limits ROM Impairments grossly WFL OT Strength Upper Extremity Strength Assessment Within Functional Limits M9 OT- IP Assessment and Plan Start: 11/30/22 15:07 Freq: Status: Active Protocol: Document 11/30/22 13:20 [facility] (Rec: 11/30/22 15:50 [facility] [id number]) OT Summary Assessment and Plan Potential Rehabilitation Potential Good Analytic Complexity at Evaluation Low Summary OT Impairments Pain,Balance,Functional Mobility,Dressing,Toileting, Bathing,Toilet Transfers, Shower Transfers,Activity Tolerance Progress Towards Goals Slow Progress due to Pain Assessment Summary Pt low complexity and main barriers are pain, decreased balance , and now needing one person assist for ADl and mobility needs. Would be best for pt to go to her sister's home for 24/7 available assist . Goals Grooming Goal Independent Dressing Goal Independent Toileting Goal Independent Bathing Goal Independent Toilet Transfer Goal Independent Shower Transfer Goal Independent Patient/Caregiver Education Goal Caregiver Independent Assisting Patient Days to Meet Goals 10 Frequency of Treatment Frequency Of Treatment Once a Day Treatment Plan OT Treatment Plan ADL Training,Functional Mobility,Patient/Family Education,Discharge Planning Other Treatment Recommendations and Next Stand at the sink for ADL Treatment Focus needs. Discharge Recommendations OT Discharge Recommendations Home with 24/7 Assist Available Transportation Needs at Discharge Private Vehicle
--- NOTE | 2022-11-30 15:48 | PT.IIE ---
Current Diagnoses Unilateral primary osteoarthritis, right hip (11/30/22) Surgery Performed Operation Date: 11/30/22 07:45 Actual Procedures p Total Hip Arthroplasty/Anterior Approach(Right) - Rylie Bullock MD Surgical History (Last Updated 01/27/20 @ 11:46 by Etelvina Hay, RN) History of open heart surgery (~1997) Hx of craniotomy (11/1997) Hx of tonsillectomy Medical History (Last Updated 01/26/20 @ 13:26 by Etelvina Hay RN) Anxiety BCC (basal cell carcinoma of skin) Brain tumor (benign) Depression DJD (degenerative joint disease) of cervical spine Easy bruisability Hx of ectopic Hyperglycemia Osteoarthritis Pacemaker (1997) Pneumonia Seizure Physical Therapy Inpatient Evaluation/Re-Eval M1 PT/OT-IP Prior Functional Status Start: 11/30/22 15:07 Freq: NEEDED Status: Active Protocol: Document 11/30/22 17:16 [facility] (Rec: 11/30/22 17:29 AB [id number]) Medical Review Prior Functional Status Medical History Reviewed Yes Communication Independent Mobility and Gait Pt having to use a SPC just prior to having hip surgery. Activities of Daily Living and IADL's Pt having pain but able to due ADL and IADL needs. Social History Household Members none Living Arrangements House Number of Floors (Floors) One Floor Number of Stairs To Enter/Railing? 3 steps, 1 step to the living room. Information in for pt's house. Pt has a stool with rails on both sides in order to help step up and get into her bed. Pt states can go to her sister 's house if needed which has no steps, standard toilet with grab bar, walk in shower, shower stool. Home Environment Standard Height Toilet,Walk in Shower Home Equipment Front Wheel Walker,Straight Cane,Shower Seat without Backrest,Hand Held Shower, Boat Outfitting Supervisor,Grab Bars Near Toilet Additional Social History Comment Pt wanting to go home, but has the option to go to her sister's house initially if needed. M1 PT/OT-IP Prior Functional Status Start: 11/30/22 17:16 Freq: NEEDED Status: Active Protocol: Document 11/30/22 17:16 [facility] (Rec: 11/30/22 17:29 AB [id number]) Medical Review Prior Functional Status Medical History Reviewed Yes Communication Independent Mobility and Gait Pt having to use a SPC just prior to having hip surgery. Activities of Daily Living and IADL's Pt having pain but able to due ADL and IADL needs. Social History Household Members none Living Arrangements House Number of Floors (Floors) One Floor Number of Stairs To Enter/Railing? 3 steps, 1 step to the living room. Information in for pt's house. Pt has a stool with rails on both sides in order to help step up and get into her bed. Pt states can go to her sister 's house if needed which has no steps, standard toilet with grab bar, walk in shower, shower stool. Home Environment Standard Height Toilet,Walk in Shower Home Equipment Front Wheel Walker,Straight Cane,Shower Seat without Backrest,Hand Held Shower, Boat Outfitting Supervisor,Grab Bars Near Toilet Additional Social History Comment Pt wanting to go home, but has the option to go to her sister's house initially if needed. M2 PT-IP Current Condition Start: 11/30/22 17:16 Freq: NEEDED Status: Active Protocol: Document 11/30/22 17:16 [facility] (Rec: 11/30/22 17:29 AB [id number]) Physical Therapy Current Condition Current Condition Evaluation Date 11/30/22 Treatment Diagnosis s/p right MEGAN (anterior approach) Onset Date 11/30/22 M3 PT-IP Subjective Start: 11/30/22 17:16 Freq: NEEDED Status: Active Protocol: Document 11/30/22 17:16 AB (Rec: 11/30/22 17:29 AB [id number]) Subjective Physical Therapy Visit Type Type Initial Evaluation Visit Start Time 15:48 Visit Stop Time 16:37 Total Visit Minutes 49 Notes Pt presents semi supine in bed with all needs met. Number of AIR SAMPLER Visits 0 Physical Therapy Visit Comments Patient Comments The pt reports she is not having pain currently and is agreeable to PT eval. Patient Goals To get stronger to be able to go home. Therapy Pain Assessment Pain When Pain Assessed During Mobility Pain Present Pain Present Denied Pain M4 PT-IP Mobility and Gait Start: 11/30/22 17:16 Freq: NEEDED Status: Active Protocol: Document 11/30/22 17:16 AB (Rec: 11/30/22 17:29 AB [id number]) PT-Bed Mobility Assessment Rolling Type of Rolling Bilateral Level of Assist Independent Supine to Sit Supine to Sit Standby Assistance,1 Person Assistance Sit to Supine Sit to Supine Standby Assistance,1 Person Assistance Scooting Scooting to Edge of Bed Standby Assistance Scooting Up and Down in Bed Standby Assistance PT-Transfer Assessment Sit to and From Stand Sit to and from Stand Standby Assistance,1 Person Assistance Equipment Transfer Assistive Device Gait Belt,Front Wheeled Walker Transfers Transfer Destination Bed,Chair,Bedside Commode Transfer Technique Stand Step Pivot Transfer Ability Level of Assist Standby Assistance,1 Person Assistance,Use of Upper Extremities Gait Assessment Gait Gait Assistance Required: Standby Assistance,1 Person Assist Distance (Feet) 150 Assistive Devices Assistive Device Gait Belt,Front Wheeled Walker Gait Deviations General Gait Pattern Antalgic,Decreased Stride Length,Decreased Feet Clearance Factors Limiting Gait Function Factors Limiting Gait Function Decreased Activity Tolerance, Decreased Strength,Limited Range of Motion Stair Climbing Assessment Comments Stair Climbing Comments Unable to assess due to weakness and fatigue. PT-Balance Assessment Sitting Balance and Reactions Static Sitting Balance Ability Normal Dynamic Sitting Balance Ability Normal Standing Balance and Reactions Static Standing Balance Ability Normal Dynamic Standing Balance Ability Good M5 PT-IP Objective Assessments Start: 11/30/22 17:16 Freq: NEEDED Status: Active Protocol: Document 11/30/22 17:16 AB (Rec: 11/30/22 17:29 AB [id number]) Orientation Orientation/Cognition Level of Alertness Alert Orientation Name,Date,Place,Situation Language Function Ability No Deficits Noted Safety Awareness Understands Safety Issues Memory Description No Deficits Noted Gross Range of Motion Upper Extremity ROM Assessment Within Functional Limits Lower Extremity ROM Assessment Right Impaired Strength Upper Extremity Strength Assessment Within Functional Limits Lower Extremity Strength Assessment Right Impaired M6 PT-IP Treatment Start: 11/30/22 17:16 Freq: NEEDED Status: Active Protocol: Document 11/30/22 17:16 AB (Rec: 11/30/22 17:29 AB [id number]) Physical Therapy Treatment Exercises Exercises Ankle Pumps,Quad Sets,Heel Slides Education Education Provided Precautions,Weight Bearing Status,Post-Op Packet,Safety Brace Education Patient Other Treatments Other Treatment Performed At end of session, the pt returned to bed. All needs were met, call light was placed within reach, and bed alarm was activated. M7 PT-IP Assessment and Plan Start: 11/30/22 17:16 Freq: NEEDED Status: Active Protocol: Document 11/30/22 17:16 AB (Rec: 11/30/22 17:29 AB [id number]) PT Summary Assessment and Plan Potential Rehabilitation Potential Excellent Status of Condition at Evaluation Stable Summary Impairments Pain,ROM,Strength,Balance,Bed Mobility,Transfers,Gait, Activity Tolerance Assessment Summary Blanca Hutchison is a 72 year old female patient who is s/p right MEGAN (anterior approach) performed on 11/30/22. Today's PT evaluation revealed deficits consistent with this surgical procedure including ROM deficits, muscular weakness, gait impairments, and decreased tolerance to activity. These deficits are limiting her ability to perform all functional mobility with independence, as she currently requires SBA with verbal cues for safety. The patient was able to ambulate 150ft with FWW and SBA, however stairs were not performed today due to weakness and fatigue. Based on these findings, the patient would benefit from skilled PT during the course of her hospital stay in order to increase her independence with functional mobility, to be discharged safely to home. However, her discharge destination may be determined by her ability to ascend and descend stairs. Outpatient PT is recommended upon discharge to improve her post surgical outcomes and to return to her PLOF. Goals Bed Mobility Goal Independent Transfer Goal Independent Gait Goal Independent,Cane,Front Wheel Walker Gait Distance 150 Other Goals Pt to ascend/descend 3 steps with independence and LRAD in order to show improving functional mobility to discharge safely to home. Days to Meet Goals 5 Frequency of Treatment Frequency Of Treatment Twice a Day Treatment Plan Physical Therapy Treatment Plan Bed Mobility Training,Transfer Training,Gait Training, Therapeutic Exercise,Balance Retraining,Post Op Education, Discharge Planning,Hot or Cold Pack,Neuromuscular Re-ed, Manual Therapy Other Recommendations and Next Treatment Assess ability to perform Focus stairs. Gait training with FWW or SPC. Perform therapeutic exercises to improve LE strength. Precautions Anterior Hip Precautions No Hip Extension,No Hip External Rotation Weight Bearing Status Weight Bearing Status Weight Bear as Tolerated Recommendations To Nursing Amount of Assist Needed Standby Assistance,1 Person Assist Discharge Recommendations PT Discharge Recommendations Home with Assistance, Outpatient PT Other Discharge Recommendations If pt cannot safely ascend/ descend stair with independence, she may have to discharge to her sister's home . Transportation Needs at Discharge Private Vehicle
--- NOTE | 2022-11-30 16:29 | PC.NURSE ---
Day shift: Patient arrived from the PACU at 1040 this morning; patient arrived onto the floor shivering, teeth-chattering, and stated that she was freezing. Warm blankets were placed, patient was afebrile. Vital signs stable, AxOx4, O2 sats are 100% on RA. Patient stated I think I'm having a panic attack. PO Ativan given as ordered, as well as PO Tylenol and Oxycodone with minimal effect. 15 minutes later, patient stated that she was having 10/10 pain and appeared visibly distressed. MD notified, new orders for IV Toradol & PO Dilaudid given w/ good effect. Pain decreased to 5-6. Patient resting comfortably in bed. No complaints of nausea. Patient stated that she has a history of anxiety, seizures which can be triggered by anxiety, and claustrophobia. Worked with PT/OT today, 1 PA w/ FWW and gait belt to [facility]. voided 700 ml. R hip incision w/ aquacel dressing is clean, dry, & intact w/ no drainage. CMS positive. Fall precautions in place, call light within reach.
[2022-11-30] MEDS: ASPIRIN EC 81 MG TABLET PO (20:59)
[2022-11-30] MEDS: DOCUSATE 100 MG CAPSULE PO (21:00)
[2022-11-30] MEDS: lamoTRIgine 100 MG TABLET 150 MG PO (21:00)
[2022-12-01] MEDS: LACTATED RINGERS 1,000 ML 100 ML IV (01:37)
[2022-12-01] MEDS: IBUPROFEN 400 MG TABLET PO ×3 (01:40→10:02)
[2022-12-01] MEDS: OXYCODONE IR 5 MG TABLET PO ×2 (04:33→08:10)
[2022-12-01] MEDS: ACETAMINOPHEN 325 MG TABLET 650 MG PO ×2 (04:33→10:03)
[2022-12-01 05:50] LABS: Hematocrit 32.5 % (36-46); Hemoglobin 11.3 g/dL (12.0-16.0)
[2022-12-01 07:00] VITALS: BP 128/56; PULSE 64; RESP 19; TEMP 36.5; O2SAT 96
--- NOTE | 2022-12-01 07:19 | PM.DS.1 ---
History of Present Illness History of Present Illness Date Patient Seen: 12/01/22 Time Patient Seen: 07:19 Chief complaint: Right MEGAN *OPB* 11/30 Narrative: Operative Date/Time/Diagnoses Date of procedure: 11/30/22 Time of procedure: 08:00 Pre-op diagnosis: right hip OA Post-op diagnosis: same Procedure & Clinicians Procedure: Right total hip arthroplasty anterior approach Same procedure as scheduled: Yes Indications: The patient has had progressively worsening right hip pain with radiographic changes consistent with arthritis. Non-operative management has failed and the patient has requested total hip replacement. The risks, benefits and alternatives to surgery were discussed with the patient prior to proceeding. Risks discussed included, but were not limited to, failure to relieve pain, leg length discrepancy, dislocation, stiffness, infection, nerve damage, deep venous thrombosis, pulmonary embolism, stroke, coma, heart attack, permanent paralysis and , as well as the potential need for eventual revision of the prosthetic. Surgeon: Rylie Bullock Warehouse Specialist: Benedicto Banda Anesthesia Type: General and Spinal Operative Notes Findings: Severe right hip OA, soft bone, adequate stability Closure Type: primary Specimen(s): none sent Prosthetic devices, grafts, tissues, transplants, or devices: Bullock and nephew R3 size 48, neutral poly liner,one 6.5 mm screw, polar stem size 0 with collar, 32 by -3 cobalt chrome femoral head Estimated Blood Loss (mL): 200 Blood products transfused: none Discharge Providers Provider Discharge Date: 12/01/22 Primary care physician: SHELLY Velazquez Consults: 11/13/22 09:22 Consult to Anesthesiology Routine Comment: Consulting Provider: Anesthesiologist Reason for consultation: Cardiac 11/30/22 06:00 Consult to Anesthesiology Routine Comment: Consulting Provider: Anesthesiologist Reason for consultation: Regional block for post operative pain control 11/30/22 10:40 Consult to Discharge Planning Routine Comment: Consult to Occupational Therapy Evaluate & Treat Comment: Physician Instructions: Evaluate and treat Consult to Physical Therapy Evaluate & Treat Comment: Physician Instructions: post op MEGAN protocol Discharge provider: Karli Torres PA-C Summary Hospital Course Discharge Diagnosis: Right hip osteoarthritis, s/p right total hip arthroplasty Hospital Course: Ms Hutchison's hospital course was unremarkable. On the morning of POD# 1, she was feeling well and wanted to go home. She was eating and voiding without difficulty and her pain was well-controlled with oral medication. She was evaluated by PT during her stay and they wanted to do stair training with her prior to discharge. Exam Vital Signs (past 8 hours): Oxygen Delivery Method Room Air Oxygen Flow Rate 0 Narrative Exam Narrative: 5/5 strength in hip flexors, quadriceps, hamstrings, DF, PF, EHL on right. Sensation to light touch intact throughout RLE. Calf soft, compressible, nontender. Aquacel CDI. Objective Labs 12/01/22 05:42 Labs: Laboratory Results - last 24 hr 12/01/22 05:42 Hgb 11.3 L Hct 32.5 L PFSH Medical History (Updated 01/26/20 @ 13:26 by Etelvina Hay RN) Anxiety BCC (basal cell carcinoma of skin) Brain tumor (benign) Depression DJD (degenerative joint disease) of cervical spine Easy bruisability Hx of ectopic Hyperglycemia Osteoarthritis Pacemaker (1997) Pneumonia Seizure Surgical History (Updated 01/27/20 @ 11:46 by Etelvina Hay RN) History of open heart surgery (~1997) Hx of craniotomy (11/1997) Hx of tonsillectomy Social History household members: none Smoking Status: Never smoker alcohol intake: current Discharge Assessment & Plan Assessment and Plan Assessment: Right hip osteoarthritis, s/p right total hip arthroplasty Plan of Treatment: Discharge home after AM PT if PT agrees. Pt has d/c meds at home. F/u in office in 2 weeks as scheduled. Discharge Plan Discharge Plan Patient Disposition: Home Discharge orders & Medications Discharge Orders: Discharge (Order); Ordered 12/01/22 Ordered By: Karli Torres Prescriptions: Continued latanoprost 0.005 % drops 1 drp EYE-BOTH ONCE PM acetaminophen 500 mg Tablet 1,000 mg PO DAILY lamotrigine 150 mg Tablet 150 mg PO BID lorazepam 0.5 mg Tablet 0.5 mg PO DAILY PRN (Reason: Anxiety, seizure) Patient Comments: 3-4 tabs a month regulary ibuprofen [Advil] 200 mg Tablet 200 mg PO BID PRN (Reason: Pain) Follow up/Referrals: Alexandra Gu ARNP [Primary Care Provider] - Rylie Bullock MD [Physician] - As previously scheduled (Follow up with Gloria Barger PA-C, on 12/14/2022 @ 4:[address] [facility] office in [place].) Diet/Activity/Treatments Diet: Diet as Tolerated Activity: Weightbearing as tolerated to right leg. Anterior hip precautions. Cold/Heat Therapy: Ice to hip as needed for pain. Skin/Wound/Dressing Care Report to your healthcare provider any signs of infection, such as:: chills, fever, night sweats, unusual drainage and unusual redness Dressing: May shower. Leave Aquacel dressing in place until follow up in office. No bathing or otherwise soaking incision. Call the office if the dressing becomes saturated inside. Visit Report/Discharge Packet Instructions: DI for Hip Replacement, DI for Prescription Opioid Use Stand Alone Forms: Patient Portal/API, Surgery Discharge Discharge Data Primary Care Provider: Alexandra Gu Attending Provider: Rylie Bullock
[2022-12-01] MEDS: ASPIRIN EC 81 MG TABLET PO (08:09)
[2022-12-01] MEDS: DOCUSATE 100 MG CAPSULE PO (08:09)
[2022-12-01] MEDS: lamoTRIgine 100 MG TABLET 150 MG PO (08:10)
--- NOTE | 2022-12-01 08:22 | PT.IPTN ---
Current Diagnoses Unilateral primary osteoarthritis, right hip (11/30/22) Surgery Performed Operation Date: 11/30/22 07:45 Actual Procedures p Total Hip Arthroplasty/Anterior Approach(Right) - Rylie Bullock MD Physical Therapy Treatment Note M2 PT-IP Current Condition Start: 11/30/22 17:16 Freq: NEEDED Status: Active Protocol: Document 11/30/22 17:16 AB (Rec: 11/30/22 17:29 AB [id number]) Physical Therapy Current Condition Current Condition Evaluation Date 11/30/22 Treatment Diagnosis s/p right MEGAN (anterior approach) Onset Date 11/30/22 M3 PT-IP Subjective Start: 11/30/22 17:16 Freq: NEEDED Status: Active Protocol: Document 12/01/22 08:43 TS (Rec: 12/01/22 09:02 TS [id number]) Subjective Physical Therapy Visit Type Type Treatment Note Visit Start Time 08:22 Visit Stop Time 08:36 Total Visit Minutes 14 Number of IMPORT/EXPORT ANALYST Visits 1 Physical Therapy Visit Comments Patient Comments Pt reports she is feeling better this morning, has some pain getting in and out of bed , pt agreeable to PT. Patient Goals To get stronger to be able to go home. Therapy Pain Assessment Pain When Pain Assessed During Mobility Pain Present Pain Present Pain Reported M4 PT-IP Mobility and Gait Start: 11/30/22 17:16 Freq: NEEDED Status: Active Protocol: Document 12/01/22 08:43 TS (Rec: 12/01/22 09:02 TS [id number]) PT-Bed Mobility Assessment Rolling Type of Rolling Bilateral Level of Assist Independent Supine to Sit Supine to Sit Standby Assistance,1 Person Assistance Sit to Supine Sit to Supine Standby Assistance,1 Person Assistance Scooting Scooting to Edge of Bed Standby Assistance PT-Transfer Assessment Sit to and From Stand Sit to and from Stand Standby Assistance,1 Person Assistance Equipment Transfer Assistive Device Gait Belt,Front Wheeled Walker Comments Mobility Comments Pt found resting in bed, agreeable to PT. She performed supine to sit SBA with HOB elevated and with use of strap to bring RLE over EOB. She performed sit to stand SBA w/ FWW, demonstrate good balance in standing. She ambulated ~ 150'SBA w/FWW with a emerging step thru gait, demonstrated good carryover and awareness of hip precautions. She performed steps x2 CGA on platform step with SPC and handheld assist, provided cues for step sequencing. Pt was left back in bed, call light within reach, RN notified. Gait Assessment Gait Gait Assistance Required: Standby Assistance,1 Person Assist Distance (Feet) 150 Assistive Devices Assistive Device Gait Belt,Front Wheeled Walker Gait Deviations General Gait Pattern Antalgic,Decreased Stride Length,Decreased Feet Clearance Factors Limiting Gait Function Factors Limiting Gait Function Decreased Activity Tolerance, Decreased Strength,Limited Range of Motion Comments Gait Comments See mobility comments. Stair Climbing Assessment Evaluation Level of Assist On Stairs Contact Guard Assistance,1 Person Assistance Devices Stair Climbing Assistive Devices Straight Cane Technique/Endurance Stair Climbing Direction Ascend and Descend Stair Climbing Technique Step to Step Number of Steps Climbed 2 Comments Stair Climbing Comments See mobility comments. PT-Balance Assessment Sitting Balance and Reactions Static Sitting Balance Ability Normal Dynamic Sitting Balance Ability Normal Standing Balance and Reactions Static Standing Balance Ability Normal Dynamic Standing Balance Ability Good M5 PT-IP Objective Assessments Start: 11/30/22 17:16 Freq: NEEDED Status: Active Protocol: Document 11/30/22 17:16 AB (Rec: 11/30/22 17:29 AB [id number]) Orientation Orientation/Cognition Level of Alertness Alert Orientation Name,Date,Place,Situation Language Function Ability No Deficits Noted Safety Awareness Understands Safety Issues Memory Description No Deficits Noted Gross Range of Motion Upper Extremity ROM Assessment Within Functional Limits Lower Extremity ROM Assessment Right Impaired Strength Upper Extremity Strength Assessment Within Functional Limits Lower Extremity Strength Assessment Right Impaired M6 PT-IP Treatment Start: 11/30/22 17:16 Freq: NEEDED Status: Active Protocol: Document 12/01/22 08:43 TS (Rec: 12/01/22 09:02 TS [id number]) Physical Therapy Treatment Education Education Provided Precautions,Weight Bearing Status,Post-Op Packet,Safety Brace Education Patient Other Treatments Other Treatment Performed Pt recalled 2/2 hip precautions, provided education on the importance of mobility and post-op ex. M7 PT-IP Assessment and Plan Start: 11/30/22 17:16 Freq: NEEDED Status: Active Protocol: Document 12/01/22 08:43 TS (Rec: 12/01/22 09:02 TS [id number]) PT Summary Assessment and Plan Potential Rehabilitation Potential Excellent Summary Progress Towards Goals Progressing Toward Goals Assessment Summary Pt continues to progress well with her mobility. She is SBA/ Ind with all bed mobility with use of strap for RLE assist. She continued to ambulate ~150 'SBA w/FWW. She demonstrates good awareness of precautions and carryover of gait sequencing. She progressed to stairs x2 CGA with SPC and handheld assist. PT is recommending return home with assist and outpatient PT. Goals Bed Mobility Goal Independent Transfer Goal Independent Gait Goal Independent,Cane,Front Wheel Walker Gait Distance 150 Other Goals Pt to ascend/descend 3 steps with independence and LRAD in order to show improving functional mobility to discharge safely to home. Days to Meet Goals 5 Frequency of Treatment Frequency Of Treatment Twice a Day Treatment Plan Physical Therapy Treatment Plan Bed Mobility Training,Transfer Training,Gait Training, Therapeutic Exercise,Balance Retraining,Post Op Education, Discharge Planning,Hot or Cold Pack,Neuromuscular Re-ed, Manual Therapy Other Recommendations and Next Treatment Assess ability to perform Focus stairs. Gait training with FWW or SPC. Perform therapeut exercises to improve LE strength. Precautions Anterior Hip Precautions No Hip Extension,No Hip External Rotation Weight Bearing Status Weight Bearing Status Weight Bear as Tolerated Recommendations To Nursing Amount of Assist Needed Standby Assistance,1 Person Assist Discharge Recommendations PT Discharge Recommendations Home with Assistance, Outpatient PT Transportation Needs at Discharge Private Vehicle
--- NOTE | 2022-12-01 09:05 | CM.DANOTE ---
DCP: Case received, EMR reviewed and met with patient. Introduced self and role. Was able to obtain information regarding patient's baseline activity status prior to her surgery. DCP assessment completed with information currently available. Patient is a 72 year old female who admitted yesterday morning to the care of the orthopedic team. PCP: Dr. Gu. Payer: confirmed: [facility]. Patient came to the hospital via private vehicle for a surgical procedure. Patient had right total hip arthroplasty anterior approach. Patient has history of right hip OA. Met with patient in her room. She has worked with P.T initially yesterday, and was working with JOSE Nagel, when this DC integrity specialist entered her room. Confirmed that she resides in [place] alone, but will be staying with her sister at discharge. Patient has been using a single point cane at her baseline prior to surgery. She will do some step training, for she has 3 steps to enter into home. P: Patient has discharge orders for home today, pending another session with P.T. Donna Hallman RN/Sandwich Wrapper Discharge Planning/Care Management CM Discharge Assessment Start: 12/01/22 09:04 Freq: Status: Active Protocol: Document 12/01/22 09:04 (Rec: 12/01/22 09:05 [id number]) Discharge Planning Assessment Assigned Hip Hop Dancer Donna Hallman RN/Sandwich Wrapper Advance Directives? Yes Advance Directives on File No History Provided By Patient,Medical Record Prior Living Arrangements House Household Members none Type of transporation used prior to Drives own vehicle admit Independent with ADL's Yes Is patient alert and oriented? Yes DME Already Rented / Owned Cane Patient/Family Preference OP PT Therapy Barriers to Discharge No Discharge Plan Home Transportation Arrangement Sister Referrals Initiated None needed Whiteboard Updated in Patient Room with Yes name and ext. # of Hip Hop Dancer Review Status In Process Next Review Type Continued Stay Review Pre-Anesthesia Assessment Start: 11/13/22 08:50 Freq: Status: Active Protocol: Document 11/13/22 08:50 AK (Rec: 11/13/22 09:22 AK [id number]) Pre-Anesthesia Assessment Patient Information Reviewed Via Phone Assessment Diagnostic Results BMP/CMP,CBC Comment EKG at [facility] [place] Primary Care Provider Alexandra Gu Medical Clearance Received No Seen Specialist in Last 12 Months Yes Specialist Seen Moss Bleacher,Orthopedist Preferred Language [place] Caramel Cutter Hand Required No Height 5 ft 3 in Weight 112 lb Body Mass Index (BMI) 19.8 Hearing Ability Hearing Impaired Visual Impairment Partially Limited Visual Assist Glasses Dentition Type Dental Implants Barriers to Learning None Hx Anesthesia Reactions Yes: PONV years ago Hx Family Anesthesia Reaction No Hx Malignant Hyperthermia No Hx Blood Transfusions Yes Hx Blood Transfusion Reaction No Anesthesia Review Requested Yes: 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 No Does patient have JOSEPH/SOB No Hx Sleep Apnea No CPAP/BIPAP use not prescribed Will Bring CPAP/BIPAP DOS No Suspected Sleep Apnea No Currently Taking a Beta Jorge No Can You Climb a Flight of Stairs Without No SOB Hx Chest Pain No Hx SOB No Hx Syncope or Dizziness Yes: Syncope r/t seizures Anti-Coagulant Therapy No Has a Moss Bleacher Yes Moss Bleacher name [facility] Cardiac Testing Yes Hx Pacemaker/ICD Yes: Pacemaker on right side, wires still on Left Diet Type At Home Regular Dysphagia Yes: Intermittent Bladder Pattern Incontinent,Nocturia Urinary Catheter Present No Hx Urinary Self Catheterization No Diabetes No HgbA1C 5.5 Date 10/25/22 Patient No Lactating No Hx Drug Resistant Organism No Presence of External or Internal Medical Yes: Pacemaker, sternal Devices hardware Lives With none Current Living Arrangements House Number of Floors (Floors) One Floor Number of Stairs To Enter/Railing? 1/none Support System Friend(s),Sibling(s) Does the Patient Have Assistance After Yes Surgery Patient Discharge Plan Description Return Home Feels Safe in Current Environment Yes Been Physically Hurt or Threatened By a No Person in Current Environment Do you have thoughts of harming yourself None or others? Are you currently considering suicide? No Do you have a plan to hurt yourself or No Plan others? Do You Have Any Spiritual Beliefs That No May Affect Your HC Choices? Do You Have Any Cultural Practices That No May Affect Your HC Choices? Who Can We Speak to About Patient's Care Letty (sister) Identifying Code for Release of Patient Ra Information Health Care Proxy/Next of Kin Letty () Health Care Proxy or [phone] Emergency Contact Name Letty () Emergency Contact or [phone] Advance Directives? Yes Advance Directives on File No Requested Patient Bring Advanced Yes Directives DOS Power of Chief Inspector No PAC Instructions Assistance for 24 hours post- op,Do not shave/clip surgical site,Durable medical equipment ,Medications to take/avoid, Nasal antibiotic,No ETOH/ petroleum product on skin DOS, NPO,Ortho class,Post-op transportation,Pre-surgical wash,Sensory aids,Sturdy shoes /comfortable clothes,Do not bring valuables and remove jewelry
--- NOTE | 2022-12-01 09:23 | OT.IP.TRT ---
Current Diagnoses Unilateral primary osteoarthritis, right hip (11/30/22) Surgery Performed Operation Date: 11/30/22 07:45 Actual Procedures p Total Hip Arthroplasty/Anterior Approach(Right) - Rylie Bullock MD Occupational Therapy Treatment Note M2 OT-IP Current Condition Start: 11/30/22 15:07 Freq: Status: Active Protocol: Document 11/30/22 13:20 [facility] (Rec: 11/30/22 15:50 [facility] [id number]) Occupational Therapy Current Condition Current Condition Evaluation Date 11/30/22 Treatment Diagnosis S/P R MEGAN anterior approach Diagnosis Onset Date 11/30/22 Post Operative Precautions Anterior Hip Precautions No Hip Extension,No Hip External Rotation M3 OT- IP Subjective and Pain Start: 11/30/22 15:07 Freq: Status: Active Protocol: Document 12/01/22 09:27 [facility] (Rec: 12/01/22 09:32 [facility] [id number]) OT- Subjective Occupational Therapy Visit Type Type Treatment Note Visit Start Time 09:08 Visit Stop Time 09:23 Total Visit Minutes 15 Occupational Therapy Visit Comments Patient Comments Pt agreed to get dressed. Patient/Caregiver Goals To go home. OT Pain Assessment Pain When Pain Assessed During Mobility Pain Present Pain Present Pain Reported M4 OT- IP ADL's Start: 11/30/22 15:07 Freq: Status: Active Protocol: Document 12/01/22 09:27 [facility] (Rec: 12/01/22 09:32 [facility] [id number]) OT [id number] Comments OT Self-Feeding Comments Not at meal time. OT ADL-Grooming Comments OT Grooming Comments Not performed. OT ADL-Oral Care Comments Oral Care Comments Not performed. OT ADL-Dressing General Eval Upper Body Dressing Ability Independent Lower Body Dressing Ability Minimal Assistance Comments OT Dressing Comments Assist to garcia socks over her feet. Pt states will not wear socks at home. Educated pt best to sit for LB dressing as pt wanting to lie down and bridge her hips up to get clothing on . Reminded pt not to extend her hips due to her anterior precautions and best to sit up at the edge of the bed. OT ADL-Toileting Comments OT Toileting Comments Not performed. OT ADL-Bathing Comments OT Bathing Comments Not performed. M5 OT- IP IADL's Start: 11/30/22 15:07 Freq: Status: Active Protocol: Document 11/30/22 13:20 [facility] (Rec: 11/30/22 15:50 [facility] [id number]) OT-Instrumental Activities of Daily Living Deficits IADL Deficits Identified Deficits Home Safety Awareness Home Safety Comments Pt insistent that she is better off at home, but realizes that she may need to go to her sister's house initially. Pt's sister lives 2 miles away. M6 OT- IP Functional Cognition Start: 11/30/22 15:07 Freq: Status: Active Protocol: Document 11/30/22 13:20 [facility] (Rec: 11/30/22 15:50 [facility] [id number]) Cognitive Factors Limiting Selfcare Function Cognitive Ability Level of Alertness Alert Patient Orientation Name,Place,Situation Attention Span Ability Capable of Focused Attention, Capable of Sustained Attention Ability to Follow Commands Able to Follow One Step Commands Safety Awareness Decreased Ability to Apply Precautions,Underestimates Need for Assistance Cognitive Comments Cognitive Assessment Comments Pt needing reminders for her hip precautions for ADl and mobility needs. OT- Vision and Hearing OT- Hearing Assessment OT- Hearing Assessment WFL OT- Vision Assessment Visual Acuity Glasses For Reading M7 OT- IP Mobility and Balance Start: 11/30/22 15:07 Freq: Status: Active Protocol: Document 12/01/22 09:27 [facility] (Rec: 12/01/22 09:32 [facility] [id number]) OT- Bed Mobility Assessment Supine to Sit Supine to Sit Assist Standby Assistance Sit to Supine Sit to Supine Assist Standby Assistance OT- Balance Assessment Sitting Balance and Reactions Static Sitting Balance Ability Normal Dynamic Sitting Balance Ability Good Standing Balance and Reactions Static Standing Balance Ability Good M8 OT- IP Objective Assessments Start: 11/30/22 15:07 Freq: Status: Active Protocol: Document 11/30/22 13:20 [facility] (Rec: 11/30/22 15:50 [facility] [id number]) OT Gross Range of Motion Upper Extremity Range of Motion Assessment Within Functional Limits ROM Impairments grossly WFL OT Strength Upper Extremity Strength Assessment Within Functional Limits M9 OT- IP Assessment and Plan Start: 11/30/22 15:07 Freq: Status: Active Protocol: Document 12/01/22 09:27 [facility] (Rec: 12/01/22 09:32 [facility] [id number]) OT Summary Assessment and Plan Potential Rehabilitation Potential Good Analytic Complexity at Evaluation Low Summary OT Impairments Pain,Balance,Functional Mobility,Dressing,Toileting, Bathing,Toilet Transfers, Shower Transfers,Activity Tolerance Progress Towards Goals Progressing Toward Goals Assessment Summary Pt will still need some assist for LB dressing for shoes/ socks and showering needs. Pt to go home and sister available to assist whenever needed. Goals Dressing Goal Independent Bathing Goal Independent Shower Transfer Goal Independent Days to Meet Goals 5 Frequency of Treatment Frequency Of Treatment Once a Day Treatment Plan OT Treatment Plan ADL Training,Functional Mobility,Patient/Family Education,Discharge Planning Discharge Recommendations OT Discharge Recommendations Home with 16/10 Assist Available Transportation Needs at Discharge Private Vehicle
--- NOTE | 2022-12-01 10:24 | PC.NURSE ---
Patient worked with PT/OT this morning, cleared for discharge. Aquacel dressing on R hip is clean, dry, & intact with no drainage. Pain 3/10 and adequately controlled with ordered pain medications. Discharge education given to patient and sister, went over anterior hip precautions and follow-up appointments. Patient/family verbalized understanding, all questions answered. All belongings are with patient, no items locked in safe. IV removed. BEHAVIORAL SERVICES TECH escorted patient to private vehicle via wheelchair.
== END 2022-12-01 10:30 | disposition home or self-care (01) ==
LOC: OR 06:16 → AC 06:17
PROVIDERS: PCP Nurse Practitioner Family; Referring Provider Nurse Practitioner Family; Visit Provider Orthopaedic Surgery
PROC: (CPT 27130; principal; 2022-11-30 07:45)
DX: M16.11 Unilateral primary osteoarthritis, right hip (principal); Z95.0 Presence of cardiac pacemaker
CPT/HCPCS: 27130; 36415; 73502; 76000; 85014; 85018; 97110; 97161; 97165; 97530; 97535; C1776; C9290; J0171; J0690; J1885; J2250; J2405; J2704; J3010